=== PATIENT | male | born 1955 | race Caucasian/White ===

== ENCOUNTER 2025-01-13 02:37 | Inpatient (IN) | payer BC, SELFPAY ==
[2025-01-12 20:12] VITALS: BP 167/97
--- NOTE | 2025-01-12 23:11 | ED.GENMED ---
History of Present Illness
<Anibal Sidhu PA-C - Last Filed: 01/13/25 00:47>
General
Chief Complaint: Extremity Pain (non-traumatic)
Source: patient
Exam Limitations: none
Time Seen by Provider: 01/12/25 22:47
History of Present Illness
History of Present Illness:
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 He has had several different episodes since the onset at 7:30 PM. He does not
smoke. No significant family history of cardiac disease. No associated chest pain. The pain that he had in his arm was not pleuritic in nature. No shortness of breath. He states that the current time of symptoms have mostly resolved
Phy Exam
<MENA Stern Last Filed: 01/13/25 00:47>
Physical Exam
Physical Exam:
General: Well-appearing male no acute respiratory distress
HEENT: Normocephalic atraumatic
Heart: Regular rate and rhythm
Lungs: Clear no wheeze
Vascular: 2+ radial pulse right wrist
Neurologic: Good strength and sensation to the right hand
Musculoskeletal slightly tender about the right elbow
Course
<Anibal Sidhu PA-C - Last Filed: 01/13/25 00:47>
Orders/Labs/Results
Orders:
Orders
01/12/25 23:08
Electrocardiogram (*1) Urgent
Reason for Study: Chest Pain
EKG- Treatment ONCE
01/12/25 23:09
CR Chest - 2 Views Urgent
Comment:
Reason For Exam: chest pain
01/12/25 23:40
Complete Blood Count/With Diff Urgent
Comprehensive Metabolic Panel Urgent
Troponin I Urgent
01/13/25 00:19
Vital Signs- Treatment ONCE
Frequency: Once
01/13/25 00:36
Aspirin Chewable [Low Strength Aspirin] 324 mg PO NOW STA
01/13/25 00:43
PTT Urgent
Comment: Obtain baseline before beginning heparin infusion if not already collected
Heparin 4,000 units IV NOW STA
Pharmacy Request to Place See Dose Instructions PO NOW STA
Discontinue all Active Warfarin orders?: Yes
Nursing to Place Non Medication Order As Directed
Physician Order: PTT 6 hours after initial start of Heparin infusion
01/13/25 00:45
Heparin [id number] Units/250 ml 25,000 units in 250 ml IV PER PROTOCOL
Weight to be used for heparin protocol in kilograms (kg):: 87.5
Protocol:: Cardiac Tx/Acute Coronary
PTT Goal Range to be used:: PTT 73 to 111 seconds
Order type:: Initial
INITIAL Infusion Dose (UNITS/KG/hr) & then follow protocol:: 12 units/kg/hr
Infusion Dose in UNITS/hr & then follow protocol (UNITS/hr):: 1,000
INFUSION RATE in mL/hr & then follow protocol (mL/hr):: 10
PTT less than or equal to 64 seconds:: Increase rate by 200 units/hr (+ 2 mL/hr)
PTT 64.1 to 72.9 seconds:: Increase rate by 100 units/hr (+ 1 mL/hr)
PTT 73 to 111 seconds:: Target Range. No change in rate.
PTT 111.1 to 130.9 seconds:: Decrease rate by 100 units/hr (- 1 mL/hr)
PTT 131 to 199.9 seconds:: HOLD for 1 hr. Then decrease rate by 200 units/hr (- 2 mL/hr)
PTT greater than or equal to 200 seconds:: HOLD for 2 hrs & Notify Provider. Then decrease by 200 units/hr (-
2 mL/hr)
Lab follow-up:: Each change, PTT q6h until 2 consecutive are therapeutic. Then PTT
daily.
01/13/25 01:[address] See Dose Instructions IV DIRECTED
Abnormal Lab Results
01/12/25
23:40
MPV 10.8 H fL
(7.4-10.4)
Absolute Neuts (auto) 7.3 H 10^3/uL
(1.4-6.5)
Lymphocytes % 19.7 L %
(20.5-51.1)
Glucose 107 H mg/dl
(70-99)
ALT 53 H U/L
(0-50)
Troponin I 0.881 H* ng/ml
Albumin 5.1 H g/dl
(3.5-5.0)
01/12/25 23:40
01/12/25 23:40
Vital Signs
Initial and Last Documented VS:
Initial Vital Signs
Temp Pulse Resp BP Pulse Ox
98.3 F 72 16 167/97 97
01/12/25 20:12 01/12/25 20:12 01/12/25 20:12 01/12/25 20:12 01/12/25 20:12
Last Documented Vital Signs
Temp Pulse Resp BP Pulse Ox
98.3 F 72 16 167/97 97
01/12/25 20:12 01/12/25 20:12 01/12/25 20:12 01/12/25 20:12 01/12/25 20:12
<Steven Rubio, DO - Last Filed: 01/13/25 00:38>
Orders/Labs/Results
Orders:
Orders
01/12/25 23:08
Electrocardiogram (*1) Urgent
Reason for Study: Chest Pain
EKG- Treatment ONCE
01/12/25 23:09
CR Chest - 2 Views Urgent
Comment:
Reason For Exam: chest pain
01/12/25 23:40
Complete Blood Count/With Diff Urgent
Comprehensive Metabolic Panel Urgent
Troponin I Urgent
01/13/25 00:19
Vital Signs- Treatment ONCE
Frequency: Once
01/13/25 00:36
Aspirin Chewable [Low Strength Aspirin] 324 mg PO NOW STA
01/13/25 00:43
PTT Urgent
Comment: Obtain baseline before beginning heparin infusion if not already collected
Heparin 4,000 units IV NOW STA
Pharmacy Request to Place See Dose Instructions PO NOW STA
Discontinue all Active Warfarin orders?: Yes
Nursing to Place Non Medication Order As Directed
Physician Order: PTT 6 hours after initial start of Heparin infusion
01/13/25 00:45
Heparin [id number] Units/250 ml 25,000 units in 250 ml IV PER PROTOCOL
Weight to be used for heparin protocol in kilograms (kg):: 87.5
Protocol:: Cardiac Tx/Acute Coronary
PTT Goal Range to be used:: PTT 73 to 111 seconds
Order type:: Initial
INITIAL Infusion Dose (UNITS/KG/hr) & then follow protocol:: 12 units/kg/hr
Infusion Dose in UNITS/hr & then follow protocol (UNITS/hr):: 1,000
INFUSION RATE in mL/hr & then follow protocol (mL/hr):: 10
PTT less than or equal to 64 seconds:: Increase rate by 200 units/hr (+ 2 mL/hr)
PTT 64.1 to 72.9 seconds:: Increase rate by 100 units/hr (+ 1 mL/hr)
PTT 73 to 111 seconds:: Target Range. No change in rate.
PTT 111.1 to 130.9 seconds:: Decrease rate by 100 units/hr (- 1 mL/hr)
PTT 131 to 199.9 seconds:: HOLD for 1 hr. Then decrease rate by 200 units/hr (- 2 mL/hr)
PTT greater than or equal to 200 seconds:: HOLD for 2 hrs & Notify Provider. Then decrease by 200 units/hr (-
2 mL/hr)
Lab follow-up:: Each change, PTT q6h until 2 consecutive are therapeutic. Then PTT
daily.
01/13/25 01:[address] See Dose Instructions IV DIRECTED
Abnormal Lab Results
01/12/25
23:40
MPV 10.8 H fL
(7.4-10.4)
Absolute Neuts (auto) 7.3 H 10^3/uL
(1.4-6.5)
Lymphocytes % 19.7 L %
(20.5-51.1)
Glucose 107 H mg/dl
(70-99)
ALT 53 H U/L
(0-50)
Troponin I 0.881 H* ng/ml
Albumin 5.1 H g/dl
(3.5-5.0)
01/12/25 23:40
01/12/25 23:40
Vital Signs
Initial and Last Documented VS:
Initial Vital Signs
Temp Pulse Resp BP Pulse Ox
98.3 F 72 16 167/97 97
01/12/25 20:12 01/12/25 20:12 01/12/25 20:12 01/12/25 20:12 01/12/25 20:12
Last Documented Vital Signs
Temp Pulse Resp BP Pulse Ox
98.3 F 72 16 167/97 97
01/12/25 20:12 01/12/25 20:12 01/12/25 20:12 01/12/25 20:12 01/12/25 20:12
<Anibal Sidhu PA-C - Last Filed: 01/13/25 00:47>
MDM/Problems Addressed
Differential Diagnosis Includes:
Patient with diaphoresis associated with right arm discomfort. No chest pain but this could be atypical presentation of ACS. EKG labs pending. Symptoms are nearly resolved at this time. Chest x-ray pending as well. Other items on differential
could include radiculopathy
<Anibal Sidhu PA-C - Last Filed: 01/13/25 00:47>
*Critical Care Note
Total Time (30-74mins, 75-104mins- exclusive of procedures): Not Applicable
<Anibal Sidhu PA-C - Last Filed: 01/13/25 00:47>
Update Note
Update Note:
EKG shows sinus rhythm without ischemic changes. There is a rate of 60. Chest x-ray within normal limits. Troponin is pending
Troponin is elevated at 0.81. Patient remained symptom-free chest x-ray is clear. Discussed with emergency room attending, cardiology and hospitalist. Will admit to hospital for concern for ACS. Aspirin and heparin ordered.
ED Attending Note
<Anibal Sidhu PA-C - Last Filed: 01/13/25 00:47>
-
Portions of this chart may have been created with voice recognition software.� Occasional wrong word or��sound alike� substitutions may have occurred due to the inherent limitations of voice recognition software.
<Steven Rubio DO - Last Filed: 01/13/25 00:38>
ED Attending Note
Patient seen and examined by attending physician: Yes
I performed the substantive portion of visit, reviewed & personally made and approve the management plan that is documented in note by myself or SERAFIN.: Yes
ED Attending Note:
I evaluated the patient at bedside. The patient is symptom-free no longer has any arm pain but did have diaphoresis earlier. Some slight prominence of the ST segment in V2 only but otherwise unremarkable EKG. Troponin significant elevated 0.881.
He has no shortness of breath to suggest PE. No recent viral syndromes to suggest viral cardiomyopathy.
Discharge Plan
Departure
Patient Disposition: Admit
Date of Disposition: 01/13/25
Time of Disposition: 00:47
Presentation/result/management discussed w/ accepting MD/DO: Hospitalist
Discharge Problem:
Elevated troponin
Referrals:
Cale Correa MD [Family Provider] -
Interventions
Interventions:
*Risk Screen - Suicide Last Done: 01/12/25 23:36
*General Assessment Last Done: 01/12/25 23:36
*Neglect/Abuse Screening Last Done: 01/12/25 23:36
*ED- Fall Risk Assessment Last Done: 01/12/25 23:37
ED-Skin Assessment Last Done: 01/12/25 23:32
ED-Peripheral Vascular Assessment Last Done: 01/12/25 23:32
ED-Musculoskeletal Assessment Last Done: 01/12/25 23:32
Discharge Date and Time
Print Language: NORWEGIAN
[2025-01-12 23:55] LABS: % Basophils 1.2 % (0-2); % Eosinophils 1.7 % (0-6); % Immature Granulocytes 0.4 % (0-0.5); % Lymphocytes 19.7 % (20.5-51.1); % Monocytes 5.7 % (1.7-9.3); % Neutrophils 71.3 % (42.2-75.2); Absolute Basophils 0.1 10^3/uL (0-0.2); Absolute Eosinophils 0.2 10^3/uL (0-0.7); Absolute Monocytes 0.6 10^3/uL (0.1-0.6); Absolute Neutrophils 7.3 10^3/uL (1.4-6.5); Hemoglobin 16.5 g/dL (13.0-18.0); Mean Corp Hgb Conc. 34.4 g/dL (33.0-37.0); Mean Corpuscular Hgb 30.4 pg (27.0-31.0); Mean Corpuscular Volume 88.6 fL (80.0-94.0); Mean Platelet Volume 10.8 fL (7.4-10.4); Nucleated Red Blood Cells % 0 % (-); Platelet Count 212 10^3/uL (130-400); Red Blood Cell Count 5.42 10^6/uL (4.70-6.10); Red Cell Dist. Width 12.6 % (11.5-14.5); White Blood Cell Count 10.3 10^3/uL (4.8-10.8)
[2025-01-13] VITALS (16 sets, daily range): BP systolic 98–146; BP diastolic 67–90; BMI 25.0
[2025-01-13 00:07] LABS: ALT (SGPT) 53 U/L (0-50); AST (SGOT) 40 U/L (17-59); Albumin 5.1 g/dl (3.5-5.0); Alkaline Phosphatase 73 U/L (38-126); Blood Urea Nitrogen 20 mg/dl (9-20); Calcium 9.8 mg/dl (8.4-10.2); Carbon Dioxide 25 mmol/L (22-30); Chloride 104 mmol/L (98-107); Glucose 107 mg/dl (70-99); Potassium 4.3 mmol/L (3.5-5.1); Sodium 141 mmol/L (135-145); Total Protein 7.2 g/dl (6.3-8.2); eGFR > 60.00
[2025-01-13 00:26] LABS: Troponin I 0.881 ng/ml
[2025-01-13] MEDS: LOW STRENGTH ASPIRIN 324 MG PO (01:09)
[2025-01-13 01:31] LABS: APTT 26.6 Sec (23.4-35.0)
[2025-01-13] MEDS: HEPARIN 4000 UNITS IV (01:35)
[2025-01-13] MEDS: HEPARIN 25000 UNITS/250 ML IV (01:36)
--- NOTE | 2025-01-13 02:23 | HPS.HSE ---
Family Physician
-
Family Physician: Cale Correa
Chief Complaint
-
Arm Pain
History of Present Illness
Patient is a 69y M with PMH significant for GERD / duodenal ulcer who presents to ED complaining of R arm pain. Patient states that he had a brief episode of discomfort in the R arm early this AM. He thought nothing of it and went about his day
as usual. he completed a normal day's work with no issues / recurrent symptoms. He returned home and around 7:30 PM he had a much more severe episode of pain. He describes it as a severe 'ache' in the R elbow and R wrist areas. This episode was
accompanied by diaphoresis. No SOB, nausea, palpitations. No chest pain. Pain lasted about 5-10 minutes and then resolved on it's own. He had a second episode a short time later and presented to the ED for further evaluation and treatment.
Patient had another episode while in the ED waiting room.
At the time of my examination patient is resting comfortably. He has had no further episodes of pain. He is able to use the R arm / hand / etc without any discomfort or reproducible pain.
Medical History
Past Medical History
Past Medical History: Reports Other
Additional Past Medical History:
GERD
Duodenal Ulcer
Past Surgical History: Reports Other
Additional Past Surgical History:
Duodenal Ulcer Repair (17yo)
T&A
Social History
Tobacco: Non-smoker
Alcohol: Occasional
Drug: None
Family History
Family History: Diabetes and Other (No family history of heart disease.)
Allergies / Home Medications
Allergies reflects when Allergies were last updated in [facility].
Home Medications with original date entered in [facility]
Allergy/Medication List:
Allergies
Allergy/AdvReac Type Severity Reaction Status Date / Time
Penicillins Allergy Rash Verified 01/12/25 20:14
Home Medications
omeprazole 20 mg tablet,delayed release 20 mg PO DAILY 01/13/25
Review of Systems
-
History Source: Patient
A 12 point ROS was completed and negative except as noted: Yes
Constitutional: Denies Fever or Chills
Respiratory: Denies Cough or Trouble Breathing
Cardiac: Reports Diaphoresis; Denies Chest Pain or Palpitations
Abdomen/GI: Denies Abdominal Pain, Nausea, Vomiting or Diarrhea
: Denies Dysuria
Musculoskeletal: Reports Joint Pain; Denies Edema
Neurological: Denies Dizzy or Headache
Psych: Denies Depression or Anxiety
Physical Exam
Vital Signs
Vital Signs
Temp Pulse Resp BP Pulse Ox
98.3 F 69 15 122/84 97
01/12/25 20:12 01/13/25 02:15 01/13/25 02:15 01/13/25 02:00 01/13/25 02:15
Physical Exam
General: Other (69y M in no acute distress.)
HEENT: Moist mucous membranes and PERRLA
Respiratory: Clear; No Wheezes, Rales or Rhonchi
Cardiac: S1/S2 and Regular Rhythm; No Murmur
GI: Soft, Non Tender, Non Distended and Normal Bowel Sounds
Musculoskeletal: No Clubbing, No Cyanosis, No Edema and Other (No tenderness about the R elbow / wrist areas. No pain with electronics processor / movement of RUE.)
Neuro: AO x 3
Laboratory Results
-
01/12/25 23:40
01/12/25 23:40
Laboratory Results
APTT 26.6 Sec (23.4-35.0) 01/13/25 01:14
Total Bilirubin 1.0 mg/dl (0.2-1.3) 01/12/25 23:40
AST 40 U/L (17-59) 01/12/25 23:40
ALT 53 U/L (0-50) H 01/12/25 23:40
Alkaline Phosphatase 73 U/L (38-126) 01/12/25 23:40
Troponin I 0.881 ng/ml H* 01/12/25 23:40
Impression/Plan
-
A/P: Patient is a 69y M with PMH significant for GERD / duodenal ulcer who presents to ED complaining of RUE pain.
ACS
- Admit to IVU for further evaluation and treatment.
- Non-reproducible RUE pain not associated with activity / movement.
- EKG is unremarkable with no prior for comparison.
- Initial troponin is elevated at 0.881 concerning for myocardial injury.
- IV heparin.
- ASA, statin.
- Follow troponin to peak.
- Cardiology consult for further recommendations / probable ischemic evaluation.
- Follow for any new / recurrent symptoms.
GERD
- Continue daily PPI.
DVT Prophylaxis: On IV Heparin
Code Status: Full
--- NOTE | 2025-01-13 04:46 | PTCARENOTE ---
pt admitted to room 2255. Denies any pain or discomfort on arrival. Pt on heparin gtt. NPO. pt oriented to the room, ambulates independently. call dumont in reach
[2025-01-13 05:10] LABS: Blood Urea Nitrogen 19 mg/dl (9-20); Calcium 9.5 mg/dl (8.4-10.2); Carbon Dioxide 23 mmol/L (22-30); Chloride 105 mmol/L (98-107); Estimated Creatinine Clearance 77 ml/min; Glucose 96 mg/dl (70-99); HDL Cholesterol 46 mg/dl; LDL Cholesterol, Calculated 103 mg/dl; Sodium 139 mmol/L (135-145); Total Cholesterol 165 mg/dl (50-199); Triglyceride 84 mg/dl (10-149); Very Low Density Lipoprotein 16 mg/dl (0-30); eGFR > 60.00
--- NOTE | 2025-01-13 08:14 | CON.CAR ---
Addendum entered and electronically signed by Francine Smith MD 01/13/25 12:31:
I saw and examined the patient.
The Toe Sewer's note was reviewed and I agree with the note.
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
nature found to have an NSTEMI with peak troponin so far of 13, slowly uptrending. Started on IV heparin drip. he is now chest pain-free and has been since last night. He has been maintained on IV unfractionated heparin.
Lab work on vital signs reviewed. On exam patient is well-appearing, no acute distress, regular rate, normal S1 and S2, no murmurs, rubs or gallops, normal carotid upstrokes, no carotid bruit, no JV lungs are clear to auscultation bilaterally, 2+
radial pulse, warm extremities without significant edema
Recommendations:
1. Continue management of acute coronary syndrome, type I NSTEMI with daily baby aspirin, high intensity statin, beta-long as tolerated and IV unfractionated heparin.
2. Continue to trend troponins and EKGs.
3. Continue to monitor on telemetry.
4. Echocardiogram to assess biventricular function and rule out any significant valvular disease.
5. Extensive discussion was had with patient and his reviewing the risk and benefits and procedural details of a coronary angiogram to rule out obstructive CAD. After detailed informed consent was obtained he will be taken to the heart
catheterization lab. Further recommendations based on findings of the heart catheterization
Francine Smith MD, [facility], [facility]
Original Note:
Consultation
Consultation Request
Date/Time Consultation Performed: 01/13/25
Requesting Provider: Dr. Dowell
Performing Provider: Megan Haley PA-C for Dr. Smith
Reason for Consultation: NSTEMI
Medical History
-
Chief Complaint: arm pain
History of Present Illness:
Patient is a 69-year-old male with past medical history of GERD, seasonal allergies who is a local dentist in the area. He states yesterday he noted several episodes of right forearm discomfort. He reports it started with minimal exertion on
walking around his home. He denies recent limitation in activity over last several days/weeks. He reports associated diaphoresis with episodes. He denies any chest discomfort and shortness of breath. He called his who brought him to ER for
further evaluation. Chest discomfort resolved on its own with time. EKG sinus rhythm. Initial troponin was 0.8 and trending up to 8.2. Cardiology consulted for evaluation
PMH:
GERD
Seasonal allergies
History of duodenal perf requiring repair at age 17
Past Medical History
Past Medical History: Other (in HPI)
Social History
Tobacco: Non-Smoker
Alcohol: Occasional
Personal:
Living: With Family
Employment: Employed (dentist)
Family History
Family History: Reviewed & Not Pertinent
Allergies / Home Medications
Allergy/AdvReac Type Severity Reaction Status Date / Time
Penicillins Allergy Rash Verified 01/12/25 20:14
�Medication �Instructions �Recorded �Confirmed �Type
omeprazole 20 mg tablet,delayed 20 mg PO DAILY 01/13/25 01/13/25 History
release
Review of Systems
-
History Source: Patient and Family
All other systems: Negative unless noted
Physical Exam
Vital Signs
Temp Pulse Resp BP Pulse Ox
98.2 F 68 16 127/75 95
01/13/25 07:44 01/13/25 07:45 01/13/25 07:44 01/13/25 07:45 01/13/25 07:44
Lab Results
01/12/25 23:40
01/13/25 04:32
Troponin I 8.220 ng/ml H* D 01/13/25 04:32
Physical Exam
General: No Apparent Distress and Comfortable
HEENT: Normocephalic, Anicteric and Moist Mucous Membranes
Respiratory: Clear and Non Labored Respirations
Cardiac: S1/S2 and Regular Rhythm
GI: Soft, Non Tender, Non Distended and Normal Bowel Sounds
Musculoskeletal: No Clubbing, No Cyanosis and No Edema
Skin: Warm and Dry
Neuro: AO x 3
Impression / Plan
-
Primary Security Control Assessor: none
Assessment:
Presentation with R arm pain, diaphoresis
NSTEMI
GERD
Seasonal allergies
ECHO 01/13/25: pending
Plan:
- Patient presents with right arm pain and diaphoresis. He has ruled in for NSTEMI with peak troponin thus far of 8
- Chest pain-free
- continue IV heparin
- Trend troponin to peak
- EKG sinus rhythm
- CXR without acute processes
- Check echo
- NPO for cardiac cath today. procedure described to patient and at bedside
- Continue aspirin 81 mg daily
- LDL 103. Lipitor 40 mg every afternoon added
- further recommendations based on results of echo and cath
- d/w nursing
Data Reviewed
-
EKG: Tracing Personally Visualized and interpreted
Radiology: Report Reviewed by me
Labs: Labs Reviewed by me
Old Records: Reviewed
[2025-01-13] MEDS: LOW STRENGTH ASPIRIN 81 MG PO (08:41)
[2025-01-13] MEDS: PROTONIX 40 MG PO (08:41)
[2025-01-13 10:17] LABS: INR 1.01; PT 13.8 Sec (11.4-14.6)
[2025-01-13 10:18] LABS: APTT 27.8 Sec (23.4-35.0)
--- NOTE | 2025-01-13 10:45 | PTCARENOTE ---
received patient this am, remains NPO for heart cath today. monitor shows NSR, IV heparin @ 1000units/hr via right forearm. echo completed at bedside. patient remains pain free. report given to mobile home laborer, to lab via bed accompanied by staff.
[2025-01-13 11:38] LABS: ACT-LR - POC 245 Seconds (116-155)
[2025-01-13 11:48] LABS: ACT-LR - POC 308 Seconds (116-155)
--- NOTE | 2025-01-13 11:58 | ITS.CL.CATH ---
Microbiology Professor - Catheterization
Cardiac Catheterization
Procedure Report:
LEFT HEART CATHETERIZATION
Date of Procedure: January 13, 2025
Referring: [facility]
PROCEDURES:
1. Left heart catheterization, coronary angiogram.
2. Moderate sedation.
3. Successful percutaneous coronary artery intervention of hazy 90% mid diagonal stenosis with SWAPNIL II flow with one 2.25 x 12 mm Medtronic Chuck drug-eluting stent, postdilated with a 2.25 x 12 mm NC balloon at 18 philipp with an excellent angiographic
result and SWAPNIL-3 flow restored down the vessel.
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
found to have an NSTEMI with peak troponin so far of 13, slowly uptrending. He is now referred for left heart catheterization to rule out obstructive CAD.
ACCESS: Right radial artery, 6Fr. sheath, under US guidance.
HEMODYNAMICS : (mmHg)
AO (s/d) : 110/67
LVEDP : 12
No significant gradient across the aortic valve to suggest aortic stenosis.
CORONARY FINDINGS
Dominance: Right
Left Main Trunk (LMT): Large caliber vessel that gives rise to the LAD, RI and LCx branches and is free of angiographic disease.
Left Anterior Descending Artery (LAD): Large caliber vessel that gives off 1 major diagonal branches as it courses along the anterior inter-ventricular groove before wrapping around the cardiac apex. Proximal LAD has an eccentric 50% stenosis.
Midportion of a major diagonal branch has hazy 90% stenosis with SWAPNIL II flow which is thought to be the culprit of presenting NSTEMI.
Left Circumflex Artery (LCx): Medium caliber vessel that gives off 1 major obtuse marginal (OM) branches as it courses along the atrio-ventricular (AV) groove. The LCx and its branches has minimal luminal irregularities.
Ranus Intermedius (RI): The ramus intermedius branch is a medium caliber vessel with minimal luminal irregularities.
Right Coronary Artery (RCA): Large caliber dominant vessel that gives rise to the posterior descending artery (RPDA) and postero-lateral ventricular (RPLV) branches distally. Mid RCA has a 30 to 40% stenosis, otherwise there is minimal luminal
irregularities.
CORONARY INTERVENTION: The left coronary artery was selectively engaged using a 6 Filipino EBU 3.5 guide catheter after the EBU 3.75 guide set deeply. Additional heparin was given to maintain therapeutic ACT throughout the case. The lesion was
navigated using a 190 cm 0.014' run-through coronary wire which was successfully advanced into the distal portion of the diagonal branch. The midportion of the diagonal branch was predilated using a 2.25 x 10 mm semicompliant balloon. The lesion
was subsequently stented using a 2.25 x 12 mm Medtronic Chuck drug-eluting stent, postdilated using a 2.25 x 12 mm NC balloon at 18 philipp with an excellent angiographic result and SWAPNIL-3 flow restored down the vessel. The patient was loaded with 180
mg of Brilinta at the end of the case. He tolerated the procedure well. No acute complications.
SEDATION: 47 minutes of procedural sedation was utilized. IV Midazolam and IV Fentanyl were administered. An independent medical doctor nuclear medicine was present to assist with and help manage the patient's level of consciousness and physiologic status.
RADIATION SUMMARY: Fluoro Time (min): 11.9, Dose (mGy): 564.3, DAP (Gy.cm2) : 36.5
Closure Device: There were no immediate intra-procedural complications. The sheath was pulled in the chemical lab technician and a vascular-band applied to the right wrist for radial artery hemostasis using the patent hemostasis technique.
CONCLUSIONS
1. Successful percutaneous coronary artery intervention of hazy 90% mid diagonal stenosis with SWAPNIL II flow with one 2.25 x 12 mm Medtronic Chuck drug-eluting stent, postdilated with a 2.25 x 12 mm NC balloon at 18 philipp with an excellent angiographic
result and SWAPNIL-3 flow restored down the vessel.
2. LVEDP of 12 mmHg
RECOMMENDATIONS
1. 1. Wean radial band per protocol. Monitor right hand perfusion and for bleeding from the radial site following removal of the vascular-band following trans-radial access.
2. Continue aggressive medical therapy and risk factor modification for secondary CAD prevention.
3. Continue ASA 81 mg daily for life.
4. Continue ticagrelor 90 mg twice daily for at least 12 months of uninterrupted dual anti-platelet therapy given drug-eluting stent (BASIL) implantation to mitigate the risk of stent thrombosis. This is not to be stopped for any reason without the
guidance of a econometrics professor.
5. Hydrate with normal saline to mitigate the risk of contrast-induced acute kidney injury.
6. Aggressive risk factor control.
7. Follow-up with outpatient econometrics professor.
8. Referral for outpatient cardiac rehab.
Francine Smith MD, FACC, [facility]
--- NOTE | 2025-01-13 13:00 | CM ---
Reviewed chart.. Met with Dr. Hadley and his spouse to review discharge plans. He states prior to admission he resides with his spouse in a two story home with two steps to enter. He states he has a full flight of steps to get to bedroom/full
bathroom. He states he has a powder room on the first floor. He states prior to admission he was independent with ambulation and adls. He states he has a CPAP Machine at home. He states he has a prescription plan and uses [facility].
Telephone call to his prescription plan to check on co-pay for Brilinta 90 mg po bid. His co-pay would be $30.00 a month via retail and $60.00 for a three month supply via mail order from [facility]. Reviewed co-pay with him. He is agreeable to the
co-pay. Telephone call to [facility] to if Brilinta 90 mg po bid is in stock. [facility] does not have it in stock. Reviewed with Kandace and she will order Brilinta today. Medical work-up in progress. The discharge plan is to return home with his
spouse when medically stable.
[2025-01-13 13:08] LABS: Glycohemoglobin (HgbA1c) 5.6 % (4.0-5.6)
--- NOTE | 2025-01-13 15:54 | W.PN.HOSP.TC ---
Today's Communication/Plan
-
Assessment / Plan
Assessment / Plan
General: No Apparent Distress, Comfortable and Conversant
HEENT: NormoCephalic, Moist mucous membranes, Atraumatic
Respiratory: Clear and Non Labored Respirations
Cardiac: S1/S2 and Regular Rhythm; No Rub or Gallop
GI: Soft, Non Tender, Non Distended and Normal Bowel Sounds
Musculoskeletal: No Edema, no deformity
Skin: Warm and dry, right radial vascular access site with pressure dressing in place
: NO Curran
Neuro: Awake, Alert, Nonfocal/grossly intact
Psych: Calm and Intact Judgment/Insight
Mr. Hadley is a 69-year-old male with a medical history of duodenal ulcer (remote history of duodenal ulcer perforation at age 17, status post repair) who presented with right arm discomfort and diaphoresis. He was found to have significantly
elevated troponins with no remarkable EKG findings. He was started on IV heparin drip, given full-strength aspirin, and admitted to IVU for further evaluation and management of NSTEMI.
NSTEMI:
- Status post cardiac cath today 01/13 with PCI x 1 to mid diagonal coronary artery
- Tolerated procedure well
- Continue DAPT with aspirin and Brilinta for at least 12 months
- High intensity statin therapy
- Beta-blockade with metoprolol succinate 25 mg p.o. daily
Duodenal ulcer disease:
- Continue PPI
DVT prophylaxis: Ambulatory, on DAPT
CODE STATUS: Full code
Total time spent on today's encounter was 30 minutes
Anticipated Discharge: 24 - 48 hours
Subjective/Interval History
-
Date of Service: January 13, 2025
Patient was seen and examined at bedside following cardiac cath. Tolerated the procedure well with 1 BASIL to mid diagonal artery.
Objective Data
-
Labs:
Laboratory Results
01/13/25 01/13/25
04:32 09:47
PT 13.8
INR 1.01
APTT 27.8
Sodium 139
Potassium 4.0
Chloride 105
Carbon Dioxide 23
BUN 19
Creatinine 1.0
Glucose 96
Calcium 9.5
Vital Signs:
Vital Signs
Temp Pulse Resp BP Pulse Ox
98.3 F 75 16 140/87 95
01/13/25 15:16 01/13/25 15:30 01/13/25 15:16 01/13/25 15:04 01/13/25 15:30
I&O
01/12/25 01/13/25 01/14/25
06:59 06:59 06:59
Intake Total 40 / 40
Balance 40 / 40
Review of Systems
-
History Source: Patient
All other systems: Reviewed and negative
Physical Exam
-
General: No Apparent Distress
[2025-01-13] MEDS: LIPITOR 80 MG PO (17:27)
[2025-01-13] MEDS: BRILINTA 90 MG PO (20:14)
--- NOTE | 2025-01-13 23:53 | PTCARENOTE ---
Assumed care of the pt @ 1900. Pt is AAOx3 SR on the monitor VSS Rt wrist cath site dressing c/d/i. Call dumont within reach.
[2025-01-14] VITALS (7 sets, daily range): BP systolic 106–137; BP diastolic 77–104
[2025-01-14 05:33] LABS: Blood Urea Nitrogen 14 mg/dl (9-20); Calcium 9.8 mg/dl (8.4-10.2); Carbon Dioxide 24 mmol/L (22-30); Chloride 107 mmol/L (98-107); Estimated Creatinine Clearance 70 ml/min; Glucose 102 mg/dl (70-99); Sodium 141 mmol/L (135-145); eGFR > 60.00
[2025-01-14] MEDS: LOW STRENGTH ASPIRIN 81 MG PO (08:53)
[2025-01-14] MEDS: BRILINTA 90 MG PO (08:53)
[2025-01-14] MEDS: PROTONIX 40 MG PO (08:53)
[2025-01-14] MEDS: TOPROL XL 25 MG PO (08:53)
--- NOTE | 2025-01-14 08:56 | W.PN.CARDCBS ---
Addendum entered and electronically signed by Alexander Jackson MD 01/14/25 11:12:
I saw and examined the patient.
The Hand Splitter's note was reviewed and I agree with the note.
Comment:
GEN: No distress, awake, Ox3
HEENT: supple, anicteric, mmm
LUNGS: CTA, no wheezes/rales
CV: Reg, S1/S2, 1/6 syst LSB, no gallop
ABD: soft, BS+, NT/ND
EXT: No edema
NEURO: Gross non-focal
SKIN: No rash
PLan:
Overall doing well. Status post non-STEMI with diagonal PCI.
Continue medical therapy of residual LAD and RCA disease.
Continue aspirin, Brilinta, Toprol, and atorvastatin.
Okay for discharge. Will arrange cardiology follow-up
Original Note:
Today's Communication / Plan
-
Status post diag PCI
Medical therapy of residual moderate coronary disease
Continue aspirin, Brilinta, Toprol, Lipitor
Cardiac rehab
Outpatient cardiac follow-up
Okay for DC
Impression / Plan
-
Primary Mixing Technician: none
Assessment:
Presentation with R arm pain, diaphoresis
NSTEMI s/p diag PCI 01/13/25
GERD
Seasonal allergies
ECHO 01/13/25: EF 50 to 55%, basal and mid anterior hypokinesis
Plan:
- Patient presented with right arm pain and diaphoresis. He ruled in for NSTEMI with peak troponin of 13.1
- Status post cardiac catheterization 01/14/2025 resulting in diagonal PCI. He does have residual moderate LAD and RCA disease as well with plan for medical management at this time. Reviewed results of cardiac catheterization with patient in detail
today
- Echocardiogram with results as above
- Continue aspirin, Brilinta
- LDL 103. Continue Lipitor
- In sinus rhythm with 1 4-beat NSVT overnight. Continue Toprol
- Cardiac rehab
- Reviewed activity restrictions with patient
- Will arrange outpatient cardiac follow-up
- Okay for discharge to home today
- Discussed with hospitalist via [place] text
Progress Note - Mixing Technician
Subjective
Date of Service: January 14, 2025
Denies chest pain, shortness of breath, palpitations. Reports right wrist soreness improving
Objective
Labs:
01/12/25 23:40
01/14/25 05:01
Labs
Hgb 16.5 g/dL (13.0-18.0) 01/12/25 23:40
Hct 48.0 % (39.0-52.0) 01/12/25 23:40
Plt Count 212 10^3/uL (130-400) 01/12/25 23:40
PT 13.8 Sec (11.4-14.6) 01/13/25 09:47
INR 1.01 01/13/25 09:47
APTT 27.8 Sec (23.4-35.0) 01/13/25 09:47
Sodium 141 mmol/L (135-145) 01/14/25 05:01
Potassium 4.0 mmol/L (3.5-5.1) 01/14/25 05:01
BUN 14 mg/dl (9-20) 01/14/25 05:01
Creatinine 1.1 mg/dL (0.7-1.3) 01/14/25 05:01
Glucose 102 mg/dl (70-99) H 01/14/25 05:01
Troponins
01/12/25 01/13/25 01/13/25
23:40 04:32 09:47
Troponin I 0.881 H* 8.220 H* D 13.100 H* D
01/13/25
15:42
Troponin I 10.000 H*
Vital Signs and I&O:
Vital Signs
Temp Pulse Resp BP Pulse Ox
97.6 F 87 18 122/91 94
01/14/25 07:29 01/14/25 07:29 01/14/25 07:29 01/14/25 07:29 01/14/25 07:29
Vital Signs
Temp Pulse Resp BP Pulse Ox
97.6 F 87 18 122/91 94
01/14/25 07:29 01/14/25 07:29 01/14/25 07:29 01/14/25 07:29 01/14/25 07:29
Intake & Output
01/12/25 01/13/25 01/14/25 01/15/25
07:59 07:59 07:59 07:59
Intake Total 765 / 765
Balance 765 / 765
Physical Exam
Physical Exam
GEN: No distress, awake, alert, oriented x3
HEENT: supple, anicteric, mmm, EOMI
LUNGS: CTA bilaterally, no wheezes/rales
CV: Reg, S1/S2, no murmur
ABD: soft, BS+, NT/ND
EXT: No cyanosis, clubbing, edema
NEURO: Gross non-focal
SKIN: Warm, pink, dry. No rash. Right wrist site clean dry and intact, soft.
--- NOTE | 2025-01-14 10:09 | CM ---
Reviewed chart. Telephone call to [facility] in [place] to check if Brilinta 90 mg po daily is in stock. They do not have the Brilinta in stock. Reviewed with Dr. Hadley to get another Pharmacy choice. He states he is ofiice is across the
street from [facility] in [place], Telephone call to [facility] to see if they have Brilinta 90 mg po in stock. They have 48 pills, they will fill them and have him tile picker the rest the next day. Script sent to [facility] to fill.
Updated and Franklyn Hadley. He states he is feeling better and maybe able to go home soon. Prior to admission he resides with his spouse in a two story home with two steps to enter. He has a full flight of steps to get to bedroom/full bathroom.
He has a powder room on the first floor. Prior to admission he was independent with ambulation and adls. He has a CPAP Machine at home. He has a prescription plan and uses [facility]. Medical work-up in progress. The discharge plan is to
return home with his spouse when medically stable.
--- NOTE | 2025-01-14 10:40 | W.DCSUMMARY ---
Discharge Summary
Discharge Data
Date of Admission: 01/13/25
Date of Discharge: 01/14/25
-
Pending Results: No
Hospital Course
Mr. Hadley is a 69-year-old male with a medical history of duodenal ulcer (remote history of duodenal ulcer perforation at age 17, status post repair) who presented with right arm discomfort and diaphoresis. He was found to have significantly
elevated troponins with no remarkable EKG findings. He was started on IV heparin drip, given full-strength aspirin, and admitted to IVU for further evaluation and management of NSTEMI.
He was brought for cardiac cath on 01/13 for PCI with BASIL x 1 to mid diagonal coronary artery. He tolerated procedure well. He will be continued on DAPT with aspirin and Brilinta for at least 12 months. He will be continued on high intensity statin
therapy indefinitely and beta-blockade with metoprolol succinate 25 mg p.o. daily. He will need close outpatient cardiology follow-up. He is medically stable for discharge to home and will need outpatient cardiac rehab.
General: No Apparent Distress, Comfortable and Conversant
HEENT: NormoCephalic, Moist mucous membranes, Atraumatic
Respiratory: Clear and Non Labored Respirations
Cardiac: S1/S2 and Regular Rhythm; No Rub or Gallop
GI: Soft, Non Tender, Non Distended and Normal Bowel Sounds
Musculoskeletal: No Edema, no deformity
Skin: Warm and dry, right radial vascular access site with dressing clean dry and
: NO Curran
Neuro: Awake, Alert, Nonfocal/grossly intact
Psych: Calm and Intact Judgment/Insight
More than 30 minutes spent in discharge including
Final examination of the patient
Summarizing hospital stay
Instructions for continuing care to all relevant caregivers
Preparation of discharge records, prescriptions, and referral forms
Total time spent (in minutes): 35
Discharge Plan
-
Patient Disposition: Home (Routine Discharge)
Discharge Diagnosis/Procedures: NSTEMI, s/p angioplasty and stent to Diagonal artery
Diet: Low Cholesterol
Activity: Other activity
Additional Activity: no heavy lifting greater than 10 pounds for 1 week!
Driving Restrictions: No driving for 24 hours
Other Services: Cardiac Rehab
Activity Restrictions/Additional Instructions:
Mr. Hadley is a 69-year-old male with a medical history of duodenal ulcer (remote history of duodenal ulcer perforation at age 17, status post repair) who presented with right arm discomfort and diaphoresis. He was found to have significantly
elevated troponins with no remarkable EKG findings. He was started on IV heparin drip, given full-strength aspirin, and admitted to IVU for further evaluation and management of NSTEMI.
He was brought for cardiac cath on 01/13 for PCI with BASIL x 1 to mid diagonal coronary artery. He tolerated procedure well. He will be continued on DAPT with aspirin and Brilinta for at least 12 months. He will be continued on high intensity statin
therapy indefinitely and beta-blockade with metoprolol succinate 25 mg p.o. daily. He will need close outpatient cardiology follow-up. He is medically stable for discharge to home and will need outpatient cardiac rehab.
Stand Alone Forms: DC Instructions- Cath/EP Lab
Referrals:
Cale Correa MD [Family Provider] -
Wendi Plummer PA-C [Specified Professional Personl] - 01/27/25 4:00 pm (Cardiology followup appointment)
Prescriptions:
New
ticagrelor [Brilinta] 90 mg Tablet
90 mg PO BID Qty: 60 12RF
atorvastatin 40 mg Tablet
80 mg PO QPM 90 Days Qty: 180 0RF
aspirin 81 mg Tablet,Chewable
81 mg PO DAILY 90 Days Qty: 90 0RF
metoprolol succinate 25 mg Tablet Extended Release 24 Hr
25 mg PO DAILY 90 Days Qty: 90 0RF
Continued
omeprazole 20 mg Tablet,Delayed Release (Dr/Ec)
20 mg PO DAILY
Discharge Orders:
Discharge Patient (As Directed); Ordered 01/14/25
Ordered By: Ramírez Dowell
Care Plan Goals
Care Plan Goals:
Problem: Readiness for enhanced knowledge related to diagnosis and treatment plan
Goal: Understand your diagnosis and treatment plan needs, including medications if applicable.
Instructions: Know your diagnosis, underlying causes and treatment plan options, including medications if applicable. Consult with your health care team to learn about your diagnosis and treatment plan, including medications if applicable.
Discharge Date and Time
Print Language: SPANISH
--- NOTE | 2025-01-14 11:46 | PTCARENOTE ---
D/C instructions given to patient and , both verbalizes understanding. INT D/C'd, telemetry D/C'd, personal belongings packed and sent home with patient. D/C to home via wc accompanied by staff.
== END 2025-01-14 12:00 | disposition home or self-care (01) | DRG 322 ==
LOC: IVU 02:37
PROVIDERS: Nurse Practitioner Adult Health; Physician Assistant; ADMITTING PHYSICIAN Hospitalist; ATTENDING PHYSICIAN Internal Medicine; EMERGENCY PHYSICIAN Emergency Medicine; FAMILY PHYSICIAN Internal Medicine; OTHER PHYSICIAN Internal Medicine Interventional Cardiology
PROC: B2111ZZ Fluoroscopy of Multiple Coronary Arteries using Low Osmolar Contrast (ICD-10-PCS; 2025-01-13)
PROC: 4A023N7 Measurement of Cardiac Sampling and Pressure, Left Heart, Percutaneous Approach (ICD-10-PCS; 2025-01-13)
PROC: 027034Z Dilation of Coronary Artery, One Artery with Drug-eluting Intraluminal Device, Percutaneous Approach (ICD-10-PCS; 2025-01-13)
DX: I21.4 Non-ST elevation (NSTEMI) myocardial infarction (principal); Z87.11 Personal history of peptic ulcer disease; Z88.0 Allergy status to penicillin; K21.9 Gastro-esophageal reflux disease without esophagitis
CPT/HCPCS: 71046; 80048; 80053; 80061; 83036; 84484; 85025; 85347; 85610; 85730; 93005; 93306; 93458; 99152; 99153; 99285; C1725; C1874; C1894; C9600; Q9967

== ENCOUNTER → 2025-06-03 15:26 | Outpatient (REF) | payer BC, SELFPAY | LOC: RCS 15:26 | PROVIDERS: ATTENDING PHYSICIAN Internal Medicine Interventional Cardiology | DX: I25.10 Atherosclerotic heart disease of native coronary artery without angina pectoris (principal); R42 Dizziness and giddiness; Z95.5 Presence of coronary angioplasty implant and graft | CPT/HCPCS: 93308 ==